=== PATIENT | male | born 1985 | race Caucasian/White ===

== ENCOUNTER 2020-12-28 16:15 | Emergency (ER) | payer MEDICAID ==
[~2020-12-28] VITALS: Ht 175.3 cm; Wt 72.0 kg
[2020-12-28] MEDS ORDERED: LORAZEPAM 0.5MG TABLET PO ONE (16:45)
[2020-12-28 17:19] LABS: *AMPHETAMINES SCREEN URINE PRESUMTIVE POSITIVE (NEGATIVE); *BARBITURATES SCREEN URINE NEGATIVE (NEGATIVE); CANNABINOID URINE SCREEN PRESUMTIVE POSITIVE (NEGATIVE); OPIATES URINE SCREEN NEGATIVE (NEGATIVE); PHENCYCLIDINE URINE SCREEN NEGATIVE (NEGATIVE)
[2020-12-28 17:20] LABS: *BENZODIAZEPINES SCREEN URINE NEGATIVE (NEGATIVE); *COCAINE SCREEN URINE NEGATIVE (NEGATIVE); METHADONE URINE SCREEN NEGATIVE (NEGATIVE)
[2020-12-28 17:22] LABS: BASOPHILS % 0.5 % (0.0-2.0); EOSINOPHILS % 0.2 % (0.0-5.0); HEMATOCRIT. 41.4 % (42.0-52.0); HEMOGLOBIN. 14.4 g/dL (14.0-18.0); LYMPHOCYTES % 24.3 % (20.0-50.0); MEAN CORPUSCULAR HEMOGLOBIN 30.9 pg (28.0-32.0); MEAN CORPUSCULAR VOLUME 88.5 fL (80.0-94.0); MEAN PLATELET VOLUME 8.6 fl (7.4-10.4); MONOCYTES % 9.7 % (2.0-8.0); NEUTROPHILS % 65.3 % (40.0-76.0); PLATELET 298 x1000/uL (130-400); RED BLOOD CELL COUNT 4.68 mill/uL (4.7-6.1); RED CELL DISTRIBUTION WIDTH 13.8 % (11.6-14.6)
[2020-12-28 17:28] LABS: CHLORIDE 106 mEq/L (98-107)
[2020-12-28 17:33] LABS: ETHANOL BLOOD < 10 mg/dL
[2020-12-28] MEDS ORDERED: LORAZEPAM 1MG TABLET PO ONE (18:45)
[2020-12-28 21:31] VITALS: BP 147/93
== END 2020-12-28 21:32 | disposition home or self-care (01) ==
LOC: ER 16:15
DX: T43.621A Poisoning by amphetamines, accidental (unintentional), initial encounter (principal); Y92.018 Other place in single-family (private) house as the place of occurrence of the external cause
CPT/HCPCS: 36415; 80053; 80305; 80320; 85025; 93005; 99284; G0480